=== PATIENT | female | born 1960 | race Caucasian/White ===

== ENCOUNTER 2016-12-30 15:02 | Emergency (ER) | payer MEDICAID ==
[2016-12-30 15:02] VITALS: BMI 33.2
[2016-12-30 15:07] VITALS: TEMP 98.2
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
[2016-12-30 17:10] LABS: URINE BILIRUBIN NEGATIVE (NEGATIVE); URINE BLOOD NEGATIVE (NEGATIVE); URINE COLOR Straw (YELLOW); URINE GLUCOSE (UA) NORMAL (Normal); URINE KETONE NEGATIVE (NEGATIVE); URINE LEUKOCYTE ESTERASE NEG Leu/uL (Negative); URINE PROTEIN NEGATIVE (NEGATIVE); URINE UROBILINOGEN NORMAL mg/dL (0.2-1.0); WBC URINE 1 /hpf (0-5)
[2016-12-30 17:24] VITALS: BP 142/78; PULSE 85; RESP 18
[2016-12-30 17:33] VITALS: O2SAT 97
== END 2016-12-30 17:38 | disposition home or self-care (01) ==
LOC: C.ER 15:02
DX: G89.21 Chronic pain due to trauma (principal); M54.2 Cervicalgia; M54.9 Dorsalgia, unspecified; M25.571 Pain in right ankle and joints of right foot; M25.552 Pain in left hip; M25.551 Pain in right hip
CPT/HCPCS: 81001; 96372; 99285; J1885

== ENCOUNTER 2018-10-24 19:28 | Emergency (ER) | payer MEDICAID, OTHER ==
[2018-10-24 19:28] VITALS: BMI 26.6
[2018-10-24 20:11] VITALS: O2SAT 97
[2018-10-24] MEDS ORDERED: Sodium Chloride 0.9% 1,000 ML IV ONE (20:44)
[2018-10-24 21:07] LABS: BASO % 0.3 % (0.0-2.0); EOS % 0.5 % (0.0-4.0); HEMOGLOBIN 13.8 g/dL (11.0-16.0); LYMPH # 2.1 K/uL (1.0-4.3); LYMPH % 27.4 % (20.0-40.0); MEAN CORPUSCULAR HEMOGLOBIN 30.8 pg (27.0-31.0); MEAN CORPUSCULAR HGB CONC 34.2 g/dL (33.0-37.0); MEAN PLATELET VOLUME 8.2 fL (7.2-11.7); MONO # 0.3 K/uL (0.0-0.8); MONO % 4.2 % (0.0-10.0); NEUT # 5.1 K/uL (1.8-7.0); NEUT % 67.6 % (50.0-75.0); NRBC % 0.1 % (0.0-2.0); RBC 4.47 Mil/uL (3.80-5.20); RED CELL DISTRIBUTION WIDTH 12.5 % (11.5-14.5); WHITE BLOOD COUNT 7.5 K/uL (4.8-10.8)
--- NOTE | 2018-10-24 21:11 | C.PDOC ---
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 Pt c/o headache, vomiting and dizziness for x1 day. Pt believes she ate something that did not agree with her. Pt took Advil but it did not provide relief which prompted her to come to the ER. Pt denies fever, diarrhea, abdominal pain and chest pain. Time Seen by Provider: 10/24/18 20:07 Chief Complaint (Nursing): Dizziness/Lightheaded History Per: Patient History/Exam Limitations: no limitations Onset/Duration Of Symptoms: Days (x1) Current Symptoms Are (Timing): Still Present Past Medical History Reviewed: Historical Data, Nursing Documentation, Vital Signs Vital Signs: Last Vital Signs Temp 99 F 10/24/18 19:48 Pulse 81 10/24/18 19:48 Resp 16 10/24/18 19:48 BP 145/83 10/24/18 19:48 Pulse Ox 97 10/24/18 19:48 - Medical History PMH: Anxiety, Depression, HTN, Hypercholesterolemia Surgical History: No Surg Hx Family History: States: Unknown Family Hx - Social History Hx Tobacco Use: No Hx Alcohol Use: No Hx Substance Use: No - Immunization History Hx Tetanus Toxoid Vaccination: No Hx Influenza Vaccination: No Hx Pneumococcal Vaccination: No Review Of Systems Except As Marked, All Systems Reviewed And Found Negative. Constitutional: Negative for: Fever Cardiovascular: Negative for: Chest Pain Gastrointestinal: Positive for: Vomiting. Negative for: Abdominal Pain, Diarrhea Neurological: Positive for: Headache, Dizziness Physical Exam - Physical Exam Appears: Non-toxic, No Acute Distress Head: Atraumatic, Normacephalic Eye(s): bilateral: PERRL, EOMI Oral Mucosa: Moist Chest: Symmetrical Cardiovascular: Rhythm Regular, No Murmur, Other (normal S1, S2) Respiratory: No Rales, No Rhonchi, No Wheezing, Other (Good air movement; lungs CTA b/l ) Gastrointestinal/Abdominal: Soft, No Tenderness, No Distention, No Guarding, No Rebound Extremity: Bilateral: Atraumatic, Normal Color And Temperature, Other (no cyanosis or edema) Pulses: Left Dorsalis Pedis: Normal (2+), Right Dorsalis Pedis: Normal (2+) Neurological/Psych: Oriented x3, Normal Motor (5/5 muscle strength ), Normal Sensation, Other (GCS 15, CN 2-12 intact) Gait: Steady ED Course And Treatment - Laboratory Results Result Diagrams: 10/24/18 21:01 10/24/18 21:01 O2 Sat by Pulse Oximetry: 97 (RA) Pulse Ox Interpretation: Normal Medical Decision Making Medical Decision Making: Plans: -- chem labs -- blood work -- IV fluids -- tylenol Patient reports feeling better after treatment. Patient's labs resulted normal and the results were explained to her. Patient is clear for discharge home. Disposition Counseled Patient/Family Regarding: Studies Performed, Diagnosis, Need For Foll owup - Disposition Referrals: [facility] [Outside] [facility] [Outside] Disposition: HOME/ ROUTINE Disposition Time: 23:55 Condition: IMPROVED Additional Instructions: KARYN GARBER, thank you for letting us take care of you today. Your provider was May Noriega MD and you were treated for DIZZINESS/BODY PAIN. The emergency medical care you received today was directed at your acute symptoms. If you were prescribed any medication, please fill it and take as directed. It may take several days for your symptoms to resolve. Return to the Emergency Department if your symptoms worsen, do not improve, or if you have any other pro blems. Please contact your doctor or call one of the physicians/clinics you have been referred to that are listed on the Patient Visit Information form that is included in your discharge packet. Bring any paperwork you were given at discharge with you along with any medications you are taking to your follow up visit. Our treatment cannot replace ongoing medical care by a primary care provider outside of the emergency department. Thank you for allowing the [facility] team to be part of your care today. Instructions: Nausea and Vomiting, Adult (DC), Headache, Adult (DC) Forms: Gen Discharge Inst [place], [employer] ([place]) Print Language: TURKISH - POA Present On Arrival: None - Clinical Impression Clinical Impression: Nausea and vomiting, Headache - Scribe Statement The provider has reviewed the documentation as recorded by the Marcella Pink Do Provider Attestation: All medical record entries made by the Scribe were at my direction and personally dictated by me. I have reviewed the chart and agree that the record accurately reflects my personal performance of the history, physical exam, medical decision making, and the department course for this patient. I have also personally directed, reviewed, and agree with the discharge instructions and disposition.
[2018-10-24] MEDS ORDERED: Sodium Chloride 0.9% 1,000 ML ONE (21:12)
[2018-10-24 21:22] LABS: ALB/GLOB RATIO 1.5 (1.0-2.1); ALBUMIN 4.7 g/dL (3.5-5.0); ALT/SGPT 18 U/L (9-52); AST/SGOT 26 U/L (14-36); BLOOD UREA NITROGEN 10 mg/dL (7-17); GFR NON-AFRICAN AMERICAN > 60; LIPASE 53 U/L (23-300)
[2018-10-24 22:28] LABS: URINE BILIRUBIN NEGATIVE (NEGATIVE); URINE BLOOD NEGATIVE (NEGATIVE); URINE CLARITY Clear (Clear); URINE COLOR Colorless (YELLOW); URINE GLUCOSE (UA) NORMAL (Normal); URINE LEUKOCYTE ESTERASE NEG Leu/uL (Negative); URINE PROTEIN NEGATIVE (NEGATIVE); URINE UROBILINOGEN NORMAL mg/dL (0.2-1.0)
[2018-10-24 23:58] VITALS: BP 136/71; PULSE 73; RESP 18; TEMP 98.3
== END 2018-10-25 00:02 | disposition home or self-care (01) ==
LOC: C.ER 19:28
DX: R51 Headache (principal); R11.2 Nausea with vomiting, unspecified
CPT/HCPCS: 80053; 81001; 82948; 83690; 83735; 85025; 99285; J7030